=== PATIENT | male | born 2000 | race Caucasian/White ===

== ENCOUNTER 2019-11-04 02:25 | Emergency (ER) | payer MEDICAID ==
[~2019-11-04] VITALS: Ht 182.9 cm; Wt 78.9 kg
[2019-11-04 02:25] VITALS: BP 118/64
--- NOTE | 2019-11-04 02:25 | NUR ---
TO BED # 07 AMBULATORY
[2019-11-04] MEDS ORDERED: ALBUTEROL SULFATE/IPRATROPIU 3 ML SOL IH ONE (02:35)
[2019-11-04] MEDS ORDERED: ALBUTEROL 0.083% 2.5 MG/3 ML NEBU INH ONE (02:40)
--- NOTE | 2019-11-04 02:41 | NUR ---
18 YO MALE CO SOB DT ASTHMA FOR 2 DAYS. TAKING ALBUTEROL AT HOME BUT WAS NOT WORKING. WHEEZES THROUGHOUT. NKA AND NO OTHER MED HX BESIDES ASTHMA. RT AT BEDSIDE GIVING TX AT THIS TIME
[2019-11-04] MEDS ORDERED: predniSONE 20 MG TAB PO ONE (02:45)
--- NOTE | 2019-11-04 02:57 | NUR ---
Respiratory Therapist at bedside for respiratory intervention.
--- NOTE | 2019-11-04 03:06 | NUR ---
PT STATES THAT HE CAN BREATHE BETTER AFTER TREATMENT. LUNG SOUNDS CLEAR BILAT THROUGHOUT.
[2019-11-04 04:18] VITALS: BP 118/64
--- NOTE | 2019-11-04 04:20 | NUR ---
Patient discharged with v/s stable. Written and verbal after care instructions given and explained. Patient alert, oriented and verbalized understanding of instructions. Ambulatory with steady gait. All questions addressed prior to discharge. ID band removed. Patient advised to follow up with PMD. Rx of ALBUTEROL AND PREDNISONE given. Patient educated on indication of medication including possible reaction and side effects. Opportunity to ask questions provided and answered.
== END 2019-11-04 04:20 | disposition home or self-care (01) ==
LOC: MED 02:25
DX: J44.1 Chronic obstructive pulmonary disease with (acute) exacerbation (principal)
CPT/HCPCS: 71045; 94640; 99283; J7512; J7613; J7620; Q0092

== ENCOUNTER 2021-08-25 16:15 | Emergency (ER) | payer MEDICAID ==
[~2021-08-25] VITALS: Ht 182.9 cm; Wt 95.3 kg
[2021-08-25 16:24] VITALS: BP 141/79
[2021-08-25] MEDS ORDERED: IBUP-2213 PO (17:18)
--- NOTE | 2021-08-25 17:22 | NUR ---
PT'S LEFT MIDDLE FINGER WAS SPLINTED WITH A FINGER SPLINT. ERPA NOTIFIED.
[2021-08-25 17:30] VITALS: BP 132/72
--- NOTE | 2021-08-25 17:33 | NUR ---
Patient discharged with v/s stable. Written and verbal after care instructions given and explained. Patient alert, oriented and verbalized understanding of instructions. Ambulatory with steady gait. All questions addressed prior to discharge. ID band removed. Patient advised to follow up with PMD. Rx of IBU given. Patient educated on indication of medication including possible reaction and side effects. Opportunity to ask questions provided and answered.
== END 2021-08-25 17:33 | disposition home or self-care (01) ==
LOC: MED 16:15
DX: S62.623A Displaced fracture of middle phalanx of left middle finger, initial encounter for closed fracture (principal); J45.909 Unspecified asthma, uncomplicated; W22.8XXA Striking against or struck by other objects, initial encounter; Y92.89 Other specified places as the place of occurrence of the external cause; Y93.89 Activity, other specified; Y99.8 Other external cause status
CPT/HCPCS: 73140; 99283

== ENCOUNTER 2021-08-27 08:14 | Emergency (ER) | payer MEDICAID ==
[~2021-08-27] VITALS: Ht 182.9 cm; Wt 95.8 kg
[~2021-08-27 08:14] MED LIST: IBUP-2213 PO
[2021-08-27 08:20] VITALS: BP 122/89
--- NOTE | 2021-08-27 08:26 | NUR ---
PT AMB TO BED 9.
--- NOTE | 2021-08-27 08:30 | NUR ---
20 y/o M BIB self from home c/o L 3rd digit pain. Patient states seen here on the , states he was discharged without requested work note. Pt returned to ER today requesting work note. Pt noted with finger splint/bandaged to L 3rd digit. Reports 8/10, pressure/intermittent, non-radiating pain. Ibuprofen last night without relief. No other medical complaints. PMH/Sx/Meds: Denies NKDA
--- NOTE | 2021-08-27 09:19 | NUR ---
PER ERMD PT LEFT FINGER WAS PLACE IN A SHORT SPLINT AND ALL PMCS WAS ASSESED BEFORE AND AFTER ALL WNL. ERMD ASSESSED SPLINT AND APPROVED.
--- NOTE | 2021-08-27 09:25 | NUR ---
Patient discharged with v/s stable. Written and verbal after care instructions given and explained. Patient verbalized understanding. Ambulatory with steady gait. All questions addressed prior to discharge. Advised to follow up with PMD. Work note provided to pt.
== END 2021-08-27 09:25 | disposition home or self-care (01) ==
LOC: MED 08:14
DX: S62.603D Fracture of unspecified phalanx of left middle finger, subsequent encounter for fracture with routine healing (principal); Z02.89 Encounter for other administrative examinations; Z79.899 Other long term (current) drug therapy; X58.XXXD Exposure to other specified factors, subsequent encounter
CPT/HCPCS: 99283

== ENCOUNTER 2021-12-08 10:36 | Emergency (ER) | payer MEDICAID, OTHER ==
[~2021-12-08] VITALS: Ht 182.9 cm; Wt 95.0 kg
[2021-12-08 10:49] VITALS: BP 147/79
--- NOTE | 2021-12-08 12:05 | NUR ---
C/O RIGHT HAND PAIN S/P INJURY X 4 DAYS. SKIN IS INTACT, PINK/WARM/DRY; AAOX4, PERRL, WITH EVEN AND STEADY GAIT; LUNGS CLEAR BL, BREATHING UNLABORED; HR EVEN AND REGULAR, BL PERIPHERAL PULSES PRESENT. PT DENIES ANY FEVER AT THIS TIME; PT STATES 5/10 PAIN AT THIS TIME; VSS; PATIENT POSITIONED FOR COMFORT; HOB ELEVATED; BEDRAILS UP X2; BED DOWN.
[2021-12-08] MEDS ORDERED: ACET-8386 PO (12:17)
[2021-12-08] MEDS: KETOROLAC 30 MG/ML VIAL IM ONE ×2 (12:33→12:55)
--- NOTE | 2021-12-08 12:35 | NUR ---
IM MEDS GIVEN-NADR AT THIS TIME.
--- NOTE | 2021-12-08 12:37 | NUR ---
ULNAR-GUTTER SPLINT APPLIED TO PT RT ARM. ER PA NOTIFIED.
--- NOTE | 2021-12-08 12:41 | NUR ---
CINTHYA PMS S/P JEAN-PIERRE, ER/HAMILTON ANDRADE APPROVED SPLINT
[2021-12-08 13:15] VITALS: BP 128/67
== END 2021-12-08 13:15 | disposition home or self-care (01) ==
LOC: MED 10:36
DX: S62.336A Displaced fracture of neck of fifth metacarpal bone, right hand, initial encounter for closed fracture (principal); J45.909 Unspecified asthma, uncomplicated; Z79.1 Long term (current) use of non-steroidal anti-inflammatories (NSAID); W22.8XXA Striking against or struck by other objects, initial encounter; Y92.89 Other specified places as the place of occurrence of the external cause; Y93.89 Activity, other specified; Y99.8 Other external cause status
CPT/HCPCS: 29125; 73130; 96372; 99283; J1885

== ENCOUNTER 2023-01-09 13:07 | Emergency (ER) | payer OTHER ==
[~2023-01-09] VITALS: Ht 182.9 cm; Wt 95.9 kg
[~2023-01-09 13:07] MED LIST changes: +ACET-8905 PO
[2023-01-09 13:25] VITALS: BP 123/60
[2023-01-09] MEDS ORDERED: IBUP-2213 PO (15:34)
--- NOTE | 2023-01-09 15:55 | NUR ---
Patient discharged with v/s stable. Written and verbal after care instructions ABOUT CONTUSION given and explained. Patient alert, oriented and verbalized understanding of instructions. Ambulatory with steady gait. All questions addressed prior to discharge. ID band removed. Patient advised to follow up with PMD. Rx of MOTRIN given. Patient educated on indication of medication including possible reaction and side effects. Opportunity to ask questions provided and answered.
== END 2023-01-09 15:55 | disposition home or self-care (01) ==
LOC: MED 13:07
DX: S80.01XA Contusion of right knee, initial encounter (principal); J45.909 Unspecified asthma, uncomplicated; Z79.899 Other long term (current) drug therapy; W20.8XXA Other cause of strike by thrown, projected or falling object, initial encounter; Y93.89 Activity, other specified; Y92.89 Other specified places as the place of occurrence of the external cause; Y99.8 Other external cause status
CPT/HCPCS: 73562; 99283

== ENCOUNTER 2023-07-17 10:50 | Emergency (ER) | payer OTHER ==
[~2023-07-17] VITALS: Ht 172.7 cm; Wt 72.6 kg
[2023-07-17 11:05] VITALS: BP 126/76; PULSE 76; RESP 18; TEMP 97; O2SAT 98
[2023-07-17] MEDS ORDERED: IBUP-2213 PO (11:45)
== END 2023-07-17 11:57 | disposition home or self-care (01) ==
LOC: MED 10:50
DX: S63.681A Other sprain of right thumb, initial encounter (principal); X58.XXXA Exposure to other specified factors, initial encounter; Y93.89 Activity, other specified; Y92.89 Other specified places as the place of occurrence of the external cause; Y99.8 Other external cause status
CPT/HCPCS: 73130; 99283